=== PATIENT | male | born 1970 | race Caucasian/White ===

== ENCOUNTER 2021-09-23 19:03 | Inpatient (IN) ==
[2021-09-23] MEDS ORDERED: ONDANSETRON INJ 2 MG/ML 2 ML VIAL IV STA (19:20)
[2021-09-23] MEDS ORDERED: SODIUM CHLORIDE 0.9% 1000ML 1,000 ML IV STA (19:20)
[2021-09-23] MEDS ORDERED: MoRPHine SULFATE 4 MG/ML 1 ML CARP\\VIAL IV PRN (19:20)
--- NOTE | 2021-09-23 19:38 | Emergency Department Note ---
Impression & Plan Renal colic on left side, Hydronephrosis, JOHN (acute kidney injury) ED Provider Note NAME: LUIS FERNANDO HOUSTON JR AGE: 50 SEX: M : 1970 ARRIVES VIA: Walk-In INFORMANT: Patient, ED PROVIDER(S): Mauricio Antoine DO CHIEF COMPLAINT: Flank pain HPI: The patient is a 50-year-old male who presented to emergency department for evaluation of left-sided flank pain. The patient states that he was seen in our facility a few days ago. He was seen around midnight. He presented because of severe left-sided flank pain. At that time he was diagnosed with a left-sided kidney stone which was proximal but his pain was significantly improved he was able to be discharged home. He returns tonight because of severe worsening of pain which began on the left flank and goes up his back. He also complains of pain into his left groin. He notices nausea but no vomiting. He has been compliant with his outpatient medications. He states that when he was here the other night was the first time he has had kidney stones. She has never had a procedure to remove or stent for kidney stones. He denies having any chest pain difficulty breathing. He has had no fever. He has noticed some darkening of his urine. Patient states that he was having severe constipation because of the pain medication and took [id number] stool softeners. He was able to have a large bowel movement but states it did not help his flank pain. ROS: See above HPI for pertinent positives & negatives. A total of 10 systems reviewed and were otherwise negative. PAST MEDICAL HISTORY: See Below PAST SURGICAL HISTORY: See Below FAMILY HISTORY: See Below SOCIAL HISTORY: See Below HOME MEDICATIONS: See Below ALLERGIES: See Below VITALS: See Below PHYSICAL EXAMINATION: GENERAL: The patient is awake and alert. The patient is very anxious appearing appears to be uncomfortable. EYES: The conjunctivae are clear. The pupils are round and reactive. EARS, NOSE, MOUTH AND THROAT: The nose is without any evidence of any deformity. NECK: The neck is nontender and supple. RESPIRATORY: Normal respiratory effort is noted there is no evidence of wheezing rhonchi or rales CARDIOVASCULAR: Regular rate and rhythm noted there no murmurs rubs or gallops normal S1 normal S2. GASTROINTESTINAL: The abdomen is soft. Abdomen is nontender. BACK: There is no midline tenderness to palpation. Significant left CVA tenderness was noted to percussion. MUSCULOSKELETAL/EXTREMITIES: There is no evidence of gross deformity full range of motion is noted in the hips and shoulders. SKIN: There is no obvious evidence of any rash. There are no petechiae, pallor or cyanosis noted. NEUROLOGIC: Patient is awake alert and oriented x3 MEDICAL DECISION MAKING: The patient is a 50-year-old male who presented to the emergency department for an evaluation of flank pain. The patient was diagnosed with a proximal left ureteral calculus recently in our facility. He has been taking Motrin and Tylenol as well as oxycodone and continues to worsen. He presented to the emergency department with severe pain. He was treated with IV fluids IV pain medicine and IV antiemetics. Patient was reevaluated multiple times. I did discuss the patient's laboratory and radiographic studies with him. According to his radiographic studies the stone may be moving as the ultrasound shows the stone at the UVJ now. Due to his ongoing pain and his concerns about not being able to manage his pain at home I did discuss his case with the on-call [facility]. They have agreed to evaluate the patient in the emergency department for further management and disposition. Triage Nursing notes reviewed. Prior medical records reviewed Vital Signs: reviewed and remarkable for elevated blood pressure. Differential diagnosis: Renal colic, UTI, appendicitis, diverticulitis, mesenteric ischemia, aortic pathology, infections, inflammatory bowel disease, PUD, biliary pathology, as well as other pathologies. ER treatment provided: See below Diagnostics interpreted by me: ECG: none Cardiac Monitoring: An order was placed for continuous cardiac monitoring. The monitor shows a rate of 80 bpm with sinus rhythm. Laboratory studies: As stated above and show below. Imaging studies: See below Consultation(s): I discussed this case with Dr. Romero who is on-call for the [facility] group. They have agreed to evaluate the patient in the emergency department for further management and disposition. Past Med/Surg History Medical History GERD (gastroesophageal reflux disease) CONTROLLED WITH PRILOSEC Hip bursitis, left Hypertension Lumbar spondylosis Rheumatoid bursitis, left hip Trochanteric bursitis, right hip Surgical History History of abdominoplasty 2017 History of colonoscopy History of esophagogastroduodenoscopy (EGD) History of rotator cuff surgery RIGHT - 14-15 YEARS AGO History of sinus surgery 18 YEARS AGO Social History Smoking Status: Never smoker Second Hand Exposure: Yes; Hx Alcohol Use: Yes Alcohol type: beer Hx Substance Use: No Preferred Language: Nepalese Communication Ability: Effective Filler Room Attendant Required: No Beliefs That Will Affect Care: None Current Living Situation: Spouse and Family Feels Safe at Home: Yes Assistive Devices: None Allergies Allergies Allergy/AdvReac Type Severity Reaction Status Date / Time No Known Allergies Allergy Verified 09/23/21 19:11 Home Meds Home Medications Medication Instructions Recorded Confirmed lisinopril 10 mg tablet 10 mg PO QAM 10/05/19 09/23/21 omeprazole magnesium 20 mg 20 mg PO QAM 10/05/19 09/23/21 tablet,delayed release (Prilosec OTC) atorvastatin 10 mg tablet 10 mg PO DAILY 09/22/21 09/23/21 Previous Rx's Medication Instructions Recorded ondansetron 4 mg disintegrating 4 mg PO Q6H PRN #12 tab 09/22/21 tablet oxycodone 5 mg tablet 5 mg PO Q6H #12 tab 09/22/21 tamsulosin 0.4 mg capsule (Flomax) 0.4 mg PO DAILY #7 cap 09/22/21 Results & Data (ED) Vital Signs Vital Signs - 24 hr 09/23/21 19:06 09/23/21 19:57 09/23/21 21:03 Temperature 36.7 C Temperature Source Temporal Artery Scan Pulse Rate 100 H 86 Pulse Rate [Left Radial] 86 88 Respiratory Rate 18 20 20 Respiratory Effort / Characteristics Non-Labored Non-Labored Respiratory Depth Normal Normal Normal Blood Pressure 139/91 Blood Pressure [Right Arm] 144/88 H 153/92 H Blood Pressure Mean 107 Blood Pressure Mean [Right Arm] 106 112 Pulse Oximetry 100 93 94 Oxygen Delivery Method Room Air Room Air Room Air Sepsis Recent Fever Within 48 Hours No Sepsis New/Unexplained Change in Mental Status N/A Sepsis Action Taken by Nursing No Action Required 09/23/21 21:53 Temperature Temperature Source Pulse Rate Pulse Rate [Left Radial] 90 Respiratory Rate 20 Respiratory Effort / Characteristics Non-Labored Respiratory Depth Normal Blood Pressure Blood Pressure [Right Arm] 153/95 H Blood Pressure Mean Blood Pressure Mean [Right Arm] 114 Pulse Oximetry 94 Oxygen Delivery Method Room Air Sepsis Recent Fever Within 48 Hours Sepsis New/Unexplained Change in Mental Status Sepsis Action Taken by Longterm Medications Current Medication List: was personally reviewed by me Laboratory Data Attestation: I reviewed the patient's lab results. Result diagrams: 09/23/21 19:30 09/23/21 19:30 Lab Results 09/23/21 09/23/21 09/23/21 Range/Units 19:30 19:30 20:16 WBC 11.13 H (4.8-10.8) K/uL RBC 4.72 (4.7-6.1) M/uL Hgb 14.2 (14.0-18.0) g/dL Hct 40.5 L (42-52) % MCV 85.8 (80-100) fL MCH 30.1 (25-34) pg MCHC 35.1 (32-36) g/dL RDW Std Deviation 44.4 (36.4-46.3) fL RDW Coeff of Jazmine 14.1 (11.5-14.5) % Plt Count 238 (130-400) K/uL MPV 10.4 (7.4-10.4) fL Immature Gran % (Auto) 0.3 % Neut % (Auto) 76.7 % Lymph % (Auto) 10.1 % [place] % (Auto) 11.8 % Eos % (Auto) 1.0 % Baso % (Auto) 0.1 % Neut # (Auto) 8.55 H (1.4-6.5) K/uL Lymph # (Auto) 1.12 L (1.2-3.4) K/uL [place] # (Auto) 1.31 H (0.11-0.59) K/uL Eos # (Auto) 0.11 (0-0.5) K/uL Baso # (Auto) 0.01 (0-0.2) K/uL Immature Gran # (Auto) 0.03 H (0.00-0.02) K/uL Sodium 136 (136-145) mmol/L Potassium 4.2 (3.5-5.1) mmol/L Chloride 102 (98-107) mmol/L Carbon Dioxide 25 (21-32) mmol/L Anion Gap 9 (3-11) BUN 27 H (6-23) mg/dl Creatinine 1.98 H D (0.6-1.4) mg/dl Est Cr Clr Drug Dosing 55.4 ml/min Est GFR ( Amer) 43.7 ml/min Est GFR (Non-Af Amer) 37.7 ml/min BUN/Creatinine Ratio 13.6 (10-20) Glucose 104 H (70-99(Fasting)) mg/dl Calcium 8.9 (8.5-10.1) mg/dl Total Bilirubin 0.5 (0.2-1.0) mg/dl AST 21 (13-39) U/L ALT 23 (7-52) U/L Alkaline Phosphatase 63 (34-104) U/L Total Protein 7.0 (6.0-8.3) gm/dl Albumin 4.3 (3.4-5.0) gm/dl Globulin 2.7 (2.5-4.0) gm/dl Albumin/Globulin Ratio 1.6 (0.9-2) Lipase 21 (11-82) U/L Urine Color Yellow Urine Appearance Clear (Clear) Urine pH 5.5 (4.5-7.5) Ur Specific [place] 1.020 (1.000-1.030) Urine Protein Negative (Negative) Urine Glucose (UA) Negative (Negative) Urine Ketones 1+ H (Negative) Urine Blood Trace H (Negative) Urine Nitrite Negative (Negative) Urine Bilirubin Negative (Negative) Urine Urobilinogen Negative (Negative) Ur Leukocyte Esterase Negative (Negative) Urine WBC (Auto) 1-5 (0-5) /hpf Urine RBC (Auto) 0-4 (0-4) /hpf U Hyaline Cast (Auto) 1-5 (0-5) /lpf U Epithel Cells (Auto) 5-10 H (0-5) /lpf Urine Bacteria (Auto) Negative (Negative) Administered Medications Hydromorphone HCl (Hydromorphone Inj 0.5 Mg/0.5 Ml Syr) 0.5 mg IV Q15M PRN PRN Reason: Pain Stop: 10/07/21 19:33 Last Admin: 09/23/21 20:35 Dose: 0.5 mg Documented by: [id number] Admin: 09/23/21 19:41 Dose: 0.5 mg Documented by: [id number] Discontinued Medications Sodium Chloride (Nss 1000ml) 1,000 mls @ 999 mls/hr IV .Q1H1M STA Stop: 09/23/21 20:20 Last Infusion: 09/23/21 20:21 Dose: 0 mls/hr Documented by: [id number] Admin: 09/23/21 19:40 Dose: 999 mls/hr Documented by: [id number] Ketorolac Tromethamine (Ketorolac Tromethamine 15 Mg/Ml Vial) 10 mg IV NOW ONE Stop: 09/23/21 21:39 Last Admin: 09/23/21 21:43 Dose: 10 mg Documented by: [id number] Ondansetron HCl (Ondansetron Inj 2 Mg/Ml 2 Ml Vial) 4 mg IV NOW STA Stop: 09/23/21 19:21 Last Admin: 09/23/21 19:41 Dose: 4 mg Documented by: [id number] Imaging Data Attestation: I personally reviewed and interpreted this imaging study as follows: My Impression: KUB was obtained in the emergency department. My interpretation is no free air, no obstruction, no acute disease. I was not able to identify any specific calcification that would be consistent with the patient's reported history of a left-sided ureteral calculus. Radiologist's Impression: Patient: LUIS FERNANDO HOUSTON JR (Male) : 66 Status: ER Date: 09/23/21 21:11 Room #: History: left flank pain Slices: 32 Priors: Tech: Miguel Calabrese @ [phone] Exams: US RENAL Contrast: Accession Numbers: [id number] Referring Physician: REFERRED SELF Preliminary Findings Only See Final Report For Complete Findings US RENAL: Mild left pelvocaliectasis. Kidney stone measuring at least 6 mm in diameter at the left ureterovesicular junction. Unremarkable appearance of the right kidney. Layering stones/debris in the bladder. Mild thickening of the bladder wall. Hepatic steatosis. Comparison made with 09/22/2021 CT abdomen/pelvis. Radiologist: Will Junior MD Study ready at 21:13 and initial results transmitted at 21:28 Discharge Plan Visit Data Chief Complaint: Kidney Stone Stated Complaint: KIDNEY STONE, PAIN MEDS NOT HELPING ED Provider: Mauricio Antoine Discharge Problem: Renal colic on left side, Hydronephrosis, JOHN (acute kidney injury) Patient Disposition: Being Evaluated by Hospitalist Forms Stand Alone Forms: [facility] Prescriptions Prescriptions: No Action lisinopril 10 mg Tablet 10 mg PO QAM RF: 0 omeprazole magnesium [Prilosec OTC] 20 mg Tablet,Delayed Release (Dr/Ec) 20 mg PO QAM RF: 0 atorvastatin 10 mg Tablet 10 mg PO DAILY RF: 0 tamsulosin [Flomax] 0.4 mg capsule 0.4 mg PO DAILY Qty: 7 RF: 0 ondansetron 4 mg tablet,disintegrating 4 mg PO Q6H PRN (Reason: nausea and vomiting) Qty: 12 RF: 0 oxycodone 5 mg tablet 5 mg PO Q6H Qty: 12 RF: 0 Referrals Referrals: Marcos Painter MD [Primary Care Provider] -
[2021-09-23 19:41] LABS: Basophils # (auto) 0.01 K/uL (0-0.2); Basophils % (auto) 0.1 %; Eosinophils # (auto) 0.11 K/uL (0-0.5); Hematocrit (blood only) 40.5 % (42-52); Hemoglobin 14.2 g/dL (14.0-18.0); Immature Granulocytes # (auto) 0.03 K/uL (0.00-0.02); Immature Granulocytes % (auto) 0.3 %; Lymphocytes # (auto) 1.12 K/uL (1.2-3.4); Lymphocytes % (auto) 10.1 %; Mean Corpuscular Hemoglobin 30.1 pg (25-34); Mean Corpuscular Hgb Conc 35.1 g/dL (32-36); Mean Corpuscular Volume 85.8 fL (80-100); Mean Platelet Volume 10.4 fL (7.4-10.4); Monocytes # (auto) 1.31 K/uL (0.11-0.59); Monocytes % (auto) 11.8 %; Neutrophils # (auto) 8.55 K/uL (1.4-6.5); Neutrophils % (auto) 76.7 %; Platelet Count 238 K/uL (130-400); RDW Coefficient of Variation 14.1 % (11.5-14.5); RDW Standard Deviation 44.4 fL (36.4-46.3); Red Blood Count 4.72 M/uL (4.7-6.1); White Blood Count 11.13 K/uL (4.8-10.8)
[2021-09-23] MEDS: HYDROmorphone INJ 0.5 MG/0.5 ML SYR IV PRN ×2 (19:41→20:35)
[2021-09-23 20:28] LABS: Appearance Urine Clear (Clear); Bacteria Urine Automated Negative (Negative); Bilirubin Urine Negative (Negative); Blood Urine Trace (Negative); Color Urine Yellow; Glucose Urine UA Negative (Negative); Ketones Urine 1+ (Negative); Leukocyte Esterase Urine Negative (Negative); Nitrite Urine Negative (Negative); Protein Urine Negative (Negative); RBC Urine Automated 0-4 /hpf (0-4); Urobilinogen Urine Negative (Negative); pH Urine 5.5 (4.5-7.5)
[2021-09-23 20:44] LABS: Albumin Globulin Ratio 1.6 (0.9-2); Albumin Level 4.3 gm/dl (3.4-5.0); BUN Creatinine Ratio 13.6 (10-20); Bilirubin,Total 0.5 mg/dl (0.2-1.0); Calcium 8.9 mg/dl (8.5-10.1); Creatinine Clr Calc Pharmacy 55.4 ml/min; Est GFR (African American) 43.7 ml/min; Est GFR (Non-African American) 37.7 ml/min; Globulin 2.7 gm/dl (2.5-4.0); Potassium 4.2 mmol/L (3.5-5.1)
[2021-09-23] MEDS ORDERED: KETOROLAC TROMETHAMINE 15 MG/ML VIAL IV ONE (21:38)
[2021-09-23] MEDS ORDERED: SODIUM CHLORIDE 0.9% 1000ML 1,000 ML IV ONE (22:01)
[2021-09-23] MEDS ORDERED: POLYETHYLENE (MIRALAX) 17 GM PACK PO PRN (23:23)
[2021-09-23] MEDS ORDERED: ACETAMINOPHEN 325 MG TAB PO PRN (23:23)
[2021-09-23] MEDS ORDERED: ONDANSETRON INJ 2 MG/ML 2 ML VIAL IV PRN (23:23)
[2021-09-23] MEDS ORDERED: hydrALAZINE HCL 20 MG/ML VIAL IV PRN (23:23)
[2021-09-23] MEDS ORDERED: HYDROmorphone INJ 0.5 MG/0.5 ML SYR IV PRN (23:23)
[2021-09-23] MEDS: SODIUM CHLORIDE 0.9% 1000ML 1,000 ML IV SCH (23:39)
--- NOTE | 2021-09-24 02:24 | History and Physical Report ---
DATE OF ADMISSION: 09/23/2021. CHIEF COMPLAINT: Left renal colic. HISTORY OF PRESENT ILLNESS: This 50-year-old male with past medical history significant for hypertension, external hemorrhoids, Shine's esophagus, GERD, allergic conjunctivitis, mixed rhinitis, obesity, history of colon polyps, presents with left renal colic. The patient is having pain since last . He was in the ER yesterday and imaging studies CAT scan showed mild left hydronephrosis and hydroureter secondary to 6 mm obstructing stone in the proximal left ureter. After Toradol, the patient did fine and he was sent home on oxycodone, Flomax. The patient was taking a lot of pain medication today at home. Pain was getting worse, so he came here, and ultrasound was done in the ER, which showed the stone moved into left UVJ junction, 6 mm stone. Getting admitted because of ongoing pain and also his creatinine worsened from 1.2 to 1.9 today. The patient denies any blood in the urine or frequent micturition, no blood in the stools. No fever, no chills, no nausea, no vomiting. Currently, pain is about 5-6/10 in severity. Denies any chest pain, no shortness of breath, no headache, no blurred visions, no earache, no runny nose, no sore throat, no cough. Otherwise, ambulates okay. ALLERGIES: No known drug allergies. PAST MEDICAL HISTORY: As mentioned above. PAST SURGICAL HISTORY: Colonoscopy with biopsy, EGDs, nasal surgery, reinsert ruptured biceps tendon on the right side, right side repair of shoulder cuff avulsion, suction of fat tissue at flank. MEDICATIONS: The patient is on atorvastatin 10 mg p.o. daily, lisinopril 10 mg p.o. a.m., omeprazole 20 mg p.o. a.m., Zofran 4 mg p.o. q.6 p.r.n., oxycodone 5 mg p.o. q.6 hours p.r.n., Flomax 0.4 mg p.o. daily. FAMILY HISTORY: Significant for mother has allergies and diabetes; sister has allergies. SOCIAL HISTORY: . Some day smoker. Alcohol 8-12 drinks per week. No drug use. REVIEW OF SYSTEMS: As per HPI. Rest of review of systems is negative. PHYSICAL EXAMINATION: GENERAL: The patient is of moderate built, not in acute distress. VITAL SIGNS: Temperature 36.7, pulse 90, respiratory rate 20, blood pressure 153/95, oxygen 94% on room air. HEENT: Pupils equal, round and reactive to light. Oral mucosa moist. NECK: No JVD. No neck masses. CARDIOVASCULAR: S1 and S2 heard. Regular rate and rhythm. No murmur, no gallop. RESPIRATORY SYSTEM: Normal AP diameter. No accessory muscle use. No wheezing, no crackles. ABDOMEN: Soft, bowel sounds present. Mild left lower quadrant tenderness. No CVA tenderness. No guarding. No rigidity. CENTRAL NERVOUS SYSTEM: Cranial nerves II-XII grossly intact, nonfocal. EXTREMITIES: No edema, no erythema. LABORATORY DATA: WBC 11.13, hemoglobin 14.2, hematocrit 40.5, platelets 238. Sodium 136, potassium 4.2, chloride 102, bicarbonate 25, BUN 27, creatinine 1.98, serum glucose 104, calcium 8.9, total bilirubin 0.5, AST 21, ALT 23, alkaline phosphatase 63, lipase 21. Urinalysis, +1 ketones, trace blood. SARS-CoV-2 RNA rapid test negative. Renal ultrasound, preliminary report shows a 6 mm left uvj junction stone. ASSESSMENT AND PLAN: A 50-year-old male who presents with left renal colic. 1. Left renal colic: Pain last couple of days has pain, and yesterday in the Emergency Room, CAT scan showing left proximal ureteral kidney stone, 6 mm. He was sent home, comes back with ongoing pain and the stone has moved to left ureterovesical junction. Urinalysis shows no obvious infection. With his ongoing pain not getting better, we will keep the patient in the hospital. IV fluids, IV antiemetics, IV pain medication p.r.n. N.p.o. after midnight. Urology consult in a.m. Follow the repeat laboratories in the a.m. Continue Flomax. Further imaging studies as per urology. 2. Acute kidney injury: Presents with creatinine of 1.9. We will hold his lisinopril. Avoid nonsteroidal anti-inflammatory drugs and avoid nephrotoxic agents. Follow the repeat laboratories in the a.m. 3. Hyperlipidemia: Continue statin. 4. Hypertension: Holding lisinopril and place him on IV hydralazine p.r.n. 5. Gastroesophageal reflux disease and Shine's esophagus: Continue omeprazole. 6. Deep venous thrombosis prophylaxis: Sequential compression devices for now. DISPOSITION: Closely monitor in the medical floor. PT/OT prior to discharge. Social service to help with discharge planning. Job ID: [id number] [facility]
[2021-09-24] MEDS ORDERED: HYDROmorphone INJ 1 MG/ML SYRINGE IV PRN (05:53)
[2021-09-24] MEDS ORDERED: CIPROFLOXACIN / D5W 400 MG/200 ML BAG IV SCH (06:00)
[2021-09-24] MEDS: SODIUM CHLORIDE 0.9% 1000ML 1,000 ML IV SCH ×2 (06:45→16:12)
--- NOTE | 2021-09-24 07:21 | Ultrasound Report ---
ULTRASOUND KIDNEYS AND BLADDER CLINICAL HISTORY: Flank pain. Known left ureteral stone. COMPARISON STUDY: Abdominal CT dated 09/22/2021. TECHNIQUE: Real-time, grayscale, and color flow sonography of the kidneys and bladder is performed. I mages are reviewed in the transverse and longitudinal planes. FINDINGS: Kidneys: The kidneys are normal in size and echotexture. The right kidney measures 12.5 cm in length and the left kidney measures 14.0 cm in length. There is mild left-sided hydronephrosis. The left ure ter is not well-visualized. No shadowing renal calculi are identified in either kidney. There is no s onographic evidence of contour deforming renal mass lesion. No perinephric fluid is identified. Bladder: The bladder wall appears thickened and trabeculated suggesting chronic outlet obstruction. U reteral jets were not seen. A shadowing stone is seen in the region of the vesicoureteral junction. Upper abdomen: Survey images of the liver show evidence of steatosis. IMPRESSION: 1. Kidneys normal in size and there is mild left hydronephrosis. 2. A large calculus is seen in the region of the vesicoureteral junction. This could represent distal migration of the known left ureteral stone or a stone seen within a left-sided bladder diverticulum on yesterday's CT scan. 3. Ureteral jets were not seen. 4. Hepatic steatosis. ACT 112: Negative or not required by law. Electronically signed by: Mitul Remy M.D. 09/24/2021 7:19 AM
--- NOTE | 2021-09-24 07:24 | XRay Report ---
KUB Clinical history: Left flank pain. FINDINGS: 2 AP supine abdominal radiographs are correlated with abdominal CT dated 09/22/2021. There i s a nonobstructed abdominal bowel gas pattern. No calcifications are seen projecting over either kidn ey. A 9 mm calcification in the left hemipelvis likely represents the large stone within a bladder di verticulum seen on yesterday's CT scan. There may be an additional 6 mm calcification projecting over the distal left ureter below the pelvic inlet. The bony structures appear intact. IMPRESSION: Left pelvic calcifications as above, likely representing stones within the distal ureter and a left-sided bladder diverticulum. Electronically signed by: Mitul Remy M.D. 09/24/2021 7:23 AM
[2021-09-24] MEDS: TAMSULOSIN HCL 0.4 MG CAP PO SCH (09:03)
[2021-09-24] MEDS: ATORVASTATIN 10 MG TAB PO SCH (09:03)
[2021-09-24] MEDS: HYDROmorphone INJ 1 MG/ML SYRINGE IV PRN ×3 (09:03→21:48)
[2021-09-24] MEDS: PANTOprazole 40 MG TAB PO SCH (09:03)
--- NOTE | 2021-09-24 09:06 | Urology Consultation ---
Date of Consultation September 24, 2021 Assessment & Plan (1) Calculus, ureteral: (2) Bladder calculi: 2 obstructing left ureteral calculi as well as stones within the bladder Plan for cystoscopy and left ureteral stent placement today I will try to evacuate the bladder stones if possible He I have explained that he will require a second procedure down the road to definitively treat these 2 stones Risks, benefits, expectations reviewed Consent has been signed and is on the chart Remain n.p.o. in preparation for the operating room History of Present Illness Attending Physician: Maykel Fuller MD History of Present Illness 50-year-old male with significant left flank pain for the past 24 to 48 hours He denies any known history of kidney stones, however, he has been passing small amounts of sand/debris in his urine for the past several years Never any large stones and never any flank pain with it He currently has a low level [id number] He has an elevated creatinine of 1.9 He continues to have intermittent waves of left flank pain with associated nausea He is afebrile He is not tachycardic His CT was reviewed and discussedhe has a left proximal ureteral calculus as well as a large left distal ureteral calculus and significant stone debris within the dependent portion of the bladder Allergies Allergy/AdvReac Type Severity Reaction Status Date / Time No Known Allergies Allergy Verified 09/23/21 19:11 Home Medications Medication Instructions Recorded Confirmed Type lisinopril 10 mg tablet 10 mg PO QAM 10/05/19 09/23/21 History omeprazole magnesium 20 mg 20 mg PO QAM 10/05/19 09/23/21 History tablet,delayed release (Prilosec OTC) atorvastatin 10 mg tablet 10 mg PO DAILY 09/22/21 09/23/21 History ondansetron 4 mg disintegrating 4 mg PO Q6H PRN #12 tab 09/22/21 09/23/21 Rx tablet oxycodone 5 mg tablet 5 mg PO Q6H #12 tab 09/22/21 09/23/21 Rx tamsulosin 0.4 mg capsule (Flomax) 0.4 mg PO DAILY #7 cap 09/22/21 09/23/21 Rx Patient History Medical History GERD (gastroesophageal reflux disease) CONTROLLED WITH PRILOSEC Hip bursitis, left Hypertension Lumbar spondylosis Rheumatoid bursitis, left hip Trochanteric bursitis, right hip Surgical History History of abdominoplasty 2017 History of colonoscopy History of esophagogastroduodenoscopy (EGD) History of rotator cuff surgery RIGHT - 14-15 YEARS AGO History of sinus surgery 18 YEARS AGO Social History Smoking Status: Current some day smoker Cigarettes Per Day: 2 cigars per month; Second Hand Exposure: Yes; Tobacco Cessation Education Requested by Patient: No Hx Alcohol Use: Yes Alcohol type: beer Hx Substance Use: No Preferred Language: [place] Communication Ability: Effective Take Away Worker Required: No Beliefs That Will Affect Care: None Current Living Situation: Spouse Feels Safe at Home: Yes Safety Concerns: Feels Safe At This Time Assistive Devices: Glasses Review of Systems Constitutional: no fever, no chills and no fatigue Eyes: no worsening vision Ear, Nose, Mouth, Throat: no facial pain and no pain with swallowing Respiratory: no cough and no dyspnea Cardiovascular: no chest pain and no palpitations Gastrointestinal: + abdominal pain and + nausea Genitourinary: + urinary hesitancy and + flank pain Musculoskeletal: no back pain Integumentary: no rash and no urticaria Neurologic: no gait abnormality and no unsteadiness Psychiatric: no behavioral changes and no depression Endocrine: no fatigue Physical Exam Constitutional: well developed and well nourished Neck: neck nontender Respiratory: normal respiratory effort; no respiratory distress and does not use accessory muscles Cardiovascular: Rate/Rhythm: regular rate Vessels: radial pulses present Extremities: no edema Gastrointestinal (Abdomen): Inspection/Auscultation: abdomen normal to inspection Percussion/Palpation: abdomen soft; abdomen nontender and no guarding Musculoskeletal: Head/Neck/Chest: normocephalic and head atraumatic Extremities: extremities normal to inspection Skin: no rashes and no lesions Trauma: no evidence of skin trauma Neurologic: awake; not obtunded Speech / Cognition: normal speech Motor/Sensory: no tremor Psychiatric: Orientation: alert and oriented x 3 Genitourinary: no CVA tenderness Lymphatic: no lymphadenopathy Results & Data ([facility]) Vital Signs (Past 12 Hours) Vital Signs Temp Pulse Pulse Pulse Resp BP BP 09/24/21 08:02 36.8 C 82 16 157/97 H 09/24/21 00:32 137/84 09/23/21 23:15 36.7 C 85 18 171/105 H 09/23/21 23:08 87 20 142/85 H 09/23/21 23:02 87 20 142/85 H 09/23/21 21:53 90 20 153/95 H Pulse Ox 09/24/21 08:02 93 09/24/21 00:32 09/23/21 23:15 95 09/23/21 23:08 95 09/23/21 23:02 95 09/23/21 21:53 94 PG Care Time/CCT Total # of Minutes Spent Total Time Spent with Patient: Total time spent is greater than 50% in coordination of care (as documented) at patient's floor/unit and/or counseling patient: Coding Level of Care Code 55776 Inpt Consult Level 5 Diagnoses Calculus, ureteral N20.1 Bladder calculi N21.0
[2021-09-24] MEDS ORDERED: SODIUM CHLORIDE 0.65% NA SOLN 45 ML (OCEAN) ONE (11:48)
[2021-09-24] MEDS ORDERED: ONDANSETRON INJ 2 MG/ML 2 ML VIAL ONE (12:00)
[2021-09-24] MEDS ORDERED: PROPOFOL IV EMULSION 10 MG/ML 20 ML VIAL IV ONE ×2 (12:01→14:48)
[2021-09-24] MEDS ORDERED: fentaNYL citrate 100 MCG/2 ML VIAL ONE (12:01)
[2021-09-24] MEDS ORDERED: MIDAZOLAM HCL 1 MG/ML 2ML VIAL ONE (12:01)
--- NOTE | 2021-09-24 13:41 | Anesthesiology Consultation ---
Date of Service September 24, 2021 Assessment & Plan ASA ASA2 Proposed Anesthesia Anesthesia Type: MAC Risk / Benefits Reviewed With: PT / POA / Parent / Guardian, Accepts Plan and Informed Consent Obtained History Surgery Operation Date: 09/24/21 09:05 Proposed Procedures p Cystoscopy - Nima Stallings MD s Ureteral Stent Insertion/Removal(Left) - Nima Stallings MD Height/Weight Height: 5 ft 11 in Weight: 113.5 kg Allergies Allergy/AdvReac Type Severity Reaction Status Date / Time No Known Allergies Allergy Verified 09/23/21 19:11 Medications Home Medications Medication Instructions Recorded Confirmed Last Taken lisinopril 10 mg tablet 10 mg PO QAM 10/05/19 09/23/21 09/21/21 omeprazole magnesium 20 mg 20 mg PO QAM 10/05/19 09/23/21 09/21/21 tablet,delayed release (Prilosec OTC) atorvastatin 10 mg tablet 10 mg PO DAILY 09/22/21 09/23/21 09/21/21 ondansetron 4 mg disintegrating 4 mg PO Q6H PRN #12 tab 09/22/21 09/23/21 Unknown tablet oxycodone 5 mg tablet 5 mg PO Q6H #12 tab 09/22/21 09/23/21 Unknown tamsulosin 0.4 mg capsule (Flomax) 0.4 mg PO DAILY #7 cap 09/22/21 09/23/21 Unknown Active Medications Generic Name Dose Route Start Last Admin Trade Name Freq PRN Reason Stop Dose Admin Atorvastatin Calcium 10 mg 09/24/21 09:00 09/24/21 09:03 Atorvastatin 10 Mg Tab PO 10/24/21 08:59 10 mg DAILY ZACH Administration Hydromorphone HCl 1 mg 09/24/21 08:09 09/24/21 11:23 Hydromorphone Inj 1 Mg/Ml Syringe IV 10/08/21 05:52 1 mg Q2H PRN Administration Pain Sodium Chloride 1,000 mls @ 125 mls/hr 09/23/21 23:23 09/24/21 06:45 Nss 1000ml IV 10/23/21 23:22 125 mls/hr .Q8H ZACH Administration Pantoprazole Sodium 40 mg 09/24/21 09:00 09/24/21 09:03 Pantoprazole 40 Mg Tab PO 10/24/21 08:59 40 mg QAM ZACH Administration Tamsulosin HCl 0.4 mg 09/24/21 09:00 09/24/21 09:03 Tamsulosin Hcl 0.4 Mg Cap PO 10/24/21 08:59 0.4 mg DAILY ZACH Administration NPO Date Last Intake of Fluids: 09/24/21 Time Last Intake of Fluids: 00:00 Date Last Intake of Solids: 09/24/21 Time Last Intake of Solids: 00:00 Past Medical History Medical History GERD (gastroesophageal reflux disease) CONTROLLED WITH PRILOSEC Hip bursitis, left Hypertension Lumbar spondylosis Rheumatoid bursitis, left hip Trochanteric bursitis, right hip Exercise / Class Metabolic Activity II 4-5 Yardwork/Stairs/Walk up hill Past Surgical History Surgical History History of abdominoplasty 2017 History of colonoscopy History of esophagogastroduodenoscopy (EGD) History of rotator cuff surgery RIGHT - 14-15 YEARS AGO History of sinus surgery 18 YEARS AGO Past Anesthesia History No Hx of Anesthesia Complications and No Family Hx of Anesthesia Complications History of PONV No Hx of PONV and No Hx of Motion Sickness Social History Smoking Status: Current some day smoker tobacco type: cigars Smoking cigarettes per day: 2 cigars per month Hx Alcohol Use: Yes Alcohol type: beer alcohol intake frequency: a few times a week Hx Substance Use: No Review of Systems denies fever/cough/ colds/ chest pain/ SOB/ KARLIE denies KARLIE Physical Exam Vital Signs Last Vital Signs Temp 36.8 C 09/24/21 08:02 Pulse 82 09/24/21 08:02 Resp 16 09/24/21 08:02 BP 157/97 H 09/24/21 08:02 Pulse Ox 93 09/24/21 08:02 ENMT Mouth: no TMJ abnormality and no dentition abnormality Thyromental Distance: > or= 3.5 Finger Breadths Mallampati Class: II Neck neck extension not limited Respiratory normal respiratory effort; no respiratory distress Auscultation: lungs clear to auscultation bilaterally Cardiovascular Rate/Rhythm: regular rate and regular rhythm Neurologic moves all extremities Psychiatric Orientation: alert and oriented x 3 Testing Laboratory Results 09/23/21 19:30 09/23/21 19:30 Urine Color Yellow 09/23/21 20:16 Urine Appearance Clear (Clear) 09/23/21 20:16 Urine pH 5.5 (4.5-7.5) 09/23/21 20:16 Ur Specific [place] 1.020 (1.000-1.030) 09/23/21 20:16 Urine Protein Negative (Negative) 09/23/21 20:16 Urine Glucose (UA) Negative (Negative) 09/23/21 20:16 Urine Ketones 1+ (Negative) H 09/23/21 20:16 Urine Nitrite Negative (Negative) 09/23/21 20:16 Ur Leukocyte Esterase Negative (Negative) 09/23/21 20:16 Urine WBC (Auto) 1-5 /hpf (0-5) 09/23/21 20:16 Urine RBC (Auto) 0-4 /hpf (0-4) 09/23/21 20:16 U Hyaline Cast (Auto) 1-5 /lpf (0-5) 09/23/21 20:16 U Epithel Cells (Auto) 5-10 /lpf (0-5) H 09/23/21 20:16 Urine Bacteria (Auto) Negative (Negative) 09/23/21 20:16
[2021-09-24] MEDS ORDERED: fentaNYL citrate 100 MCG/2 ML VIAL IV PRN (14:22)
[2021-09-24] MEDS ORDERED: ePHEDrine sulfate 50 MG/ML AMP IV PRN (14:22)
[2021-09-24] MEDS ORDERED: HYDROmorphone INJ 2 MG/ML SYR/VIAL IV PRN (14:22)
[2021-09-24] MEDS ORDERED: ATROPINE SULFATE 0.1 MG/ML 10ML SYR IV PRN (14:22)
[2021-09-24] MEDS ORDERED: ONDANSETRON INJ 2 MG/ML 2 ML VIAL IV PRN (14:22)
--- NOTE | 2021-09-24 15:15 | Operative Report ---
PG Post Operative Report Pre & Post Diagnosis Operation Date: 09/24/21 09:05 Pre-Op Diagnosis: left ureteral stone Post-Op Diagnosis: left ureteral stone; bladder diverticulum with stone; bladder calculi I identified the patient and participated in the time-out.: Yes Procedure Operation Date: 09/24/21 09:05 Actual Procedures p Cystoscopy - Nima Stallings MD cystolithalopaxy and stone extraction s Ureteral Stent Insertion(Left) - Nima Stallings MD Surgeon Luke Stallings MD Lecturer Of Portuguese none Estimated Blood Loss 0 Findings Consistent with Post-Op Diagnosis as per dictation Specimens Bladder calculi Description of Procedure The patient was identified in the preoperative holding area, appropriate informed consents were reviewed and completed and the patient was transferred to the operative suite. Upon arrival, appropriate antibiotics and anesthesia were administered and the patient was placed in dorsal lithotomy position and prepped and draped in sterile fashion. To begin the case I passed a 22 Bengali cystoscope with 30 degree lens and visual obturator. Inspection revealed a healthy-appearing urethra and a moderately enlarged prostate with a relatively high bladder neck. Upon entry into the bladder I immediately encountered a small pile of small stones. I was able to irrigate the stones out of the bladder. These were collected and passed off the table. I then started to evaluate the bladder more fully. I identified the ureteral orifices in orthotopic position and immediately posterior to the left ureteral orifice was a diverticulum with a large calculus seen within. Of note, on his preoperative imaging this calcification was visible and appeared to be very close to the distal ureter and I somewhat expected to be within the distal ureter. This clearly was not in the ureter and is immediately adjacent to it. I then turned my attention to the left UO and passed a sensor wire which advanced to the kidney without difficulty. I stented that kidney without difficulty seeing a good curl in the kidney as well as the bladder. This should address the left proximal ureteral calculus. I then turned my attention back to the stone within the diverticulum. Using a basket I was able to extract it from the diverticulum. I was able to then break in the several pieces which I could subsequently pull out of the bladder. These were also collected and passed off the table. I flushed out the diverticulum and confirmed that there were no other large stones within. At the conclusion of the case the bladder was emptied all structures were healthy. The stent was left in place and the case concluded. There were no complications. I attest to the content of the Intraoperative Record and any orders documented therein. Any exceptions are noted below.
--- NOTE | 2021-09-24 15:29 | Anesthesiology Progress Note ---
Date of Service September 24, 2021 Anesthesia Post Procedure Vital Signs Vital Signs: Temp Pulse Pulse Pulse Resp BP BP 09/24/21 08:02 36.8 C 82 16 157/97 H 09/24/21 00:32 137/84 09/23/21 23:15 36.7 C 85 18 171/105 H 09/23/21 23:08 87 20 142/85 H 09/23/21 23:02 87 20 142/85 H 09/23/21 21:53 90 20 153/95 H 09/23/21 21:03 88 20 153/92 H 09/23/21 19:57 86 86 20 144/88 H 09/23/21 19:06 36.7 C 100 H 18 139/91 Pulse Ox 09/24/21 08:02 93 09/24/21 00:32 09/23/21 23:15 95 09/23/21 23:08 95 09/23/21 23:02 95 09/23/21 21:53 94 09/23/21 21:03 94 09/23/21 19:57 93 09/23/21 19:06 100 Pain Intensity Left Flank: Pain Intensity: 2 Transfer of Care Handoff Completed per policy Notes Mental Status: alert / awake / arousable and participated in evaluation Patient Amnestic to Procedure: Yes Nausea / Vomiting: adequately controlled Pain: adequately controlled Airway Patency, RR, SpO2: stable & adequate BP & HR: stable & adequate Hydration State: stable & adequate Anesthetic Complications: no major complications apparent and Pt Satisfied with anesthetic care
--- NOTE | 2021-09-24 16:00 | Hospitalist Progress Note ---
Date of Service September 24, 2021 Assessment & Plan (1) Calculus, ureteral: (2) JOHN (acute kidney injury): Plan: 50 year old male presented to the ED with left flank pain due to left ureteral calculus. Left ureteral calculus/bladder calculi- CT reviewed. Renal US reviewed. Large calculus in VUJ. Seen by Uro. S/p OR with cystolithalopaxy and stone extraction, left ureteral stent insertion today 09/24. Pain management. UA doesn't suggest UTI JOHN- Cr 1.98 09/24, 1.29 on 09/22. JOHN In setting of NSAIDs use, calculi and lisinopril. IVF, avoid NSAIDs, hold lisinopril. Recheck in am HTN- holding lisinopril in setting of JOHN. HLZ prn GERD and barett's esophagus- continue PPI Admission and Anticipated Discharge Date Admission Date: September 23, 2021 Subjective IV dilaudid helps for 1-1.5 hrs and asking for pain medicine frequency to be increased. No fever, chills, nausea, vomiting. Urine clear without hematuria. Looking forward to OR. Physical Exam Physical Exam: General: Lying comfortably in bed, not in distress, on room air HEENT: EOMI, THU, MMM Chest: Clear breath sounds bilaterally, no wheezes or crackles CVS: Regular rate and rhythm, normal heart sounds, no murmur Abdomen: Soft, non tender, not distended, normal bowel sounds. No CVA or suprapubic tenderness. Neuro: Awake, alert, oriented, conversing well, non focal Extremities: No cyanosis, clubbing or edema Results & Data Results & Data ([facility]) Vital Signs (Past 12 Hours) Vital Signs Temp Pulse Pulse Resp BP Pulse Ox 09/24/21 15:30 36.5 C 83 18 146/87 H 94 09/24/21 15:20 81 16 129/85 95 09/24/21 15:13 36.4 C L 93 H 15 116/84 96 09/24/21 08:02 36.8 C 82 16 157/97 H 93 Laboratory Results Short CBC 09/23/21 Range/Units 19:30 WBC 11.13 H (4.8-10.8) K/uL Hgb 14.2 (14.0-18.0) g/dL Hct 40.5 L (42-52) % Plt Count 238 (130-400) K/uL BMP 09/23/21 19:30 Sodium 136 Potassium 4.2 Chloride 102 Carbon Dioxide 25 BUN 27 H Creatinine 1.98 H D Glucose 104 H Calcium 8.9 Liver Function 09/23/21 Range/Units 19:30 Total Bilirubin 0.5 (0.2-1.0) mg/dl AST 21 (13-39) U/L ALT 23 (7-52) U/L Alkaline Phosphatase 63 (34-104) U/L Albumin 4.3 (3.4-5.0) gm/dl Urine 09/23/21 Range/Units 20:16 Urine Color Yellow Urine Appearance Clear (Clear) Urine pH 5.5 (4.5-7.5) Ur Specific [place] 1.020 (1.000-1.030) Urine Protein Negative (Negative) Urine Glucose (UA) Negative (Negative) Diagnostic Findings KUB X-Ray 09/23/21 19:20 KUB Clinical history: Left flank pain. FINDINGS: 2 AP supine abdominal radiographs are correlated with abdominal CT dated 09/22/2021. There is a nonobstructed abdominal bowel gas pattern. No calcifications are seen projecting over either kidney. A 9 mm calcification in the left hemipelvis likely represents the large stone within a bladder diverticulum seen on yesterday's CT scan. There may be an additional 6 mm calcification projecting over the distal left ureter below the pelvic inlet. The bony structures appear intact. IMPRESSION: Left pelvic calcifications as above, likely representing stones within the distal ureter and a left-sided bladder diverticulum. Electronically signed by: Mitul Remy M.D. 09/24/2021 7:23 AM Renal Ultrasound 09/23/21 19:20 ULTRASOUND KIDNEYS AND BLADDER CLINICAL HISTORY: Flank pain. Known left ureteral stone. COMPARISON STUDY: Abdominal CT dated 09/22/2021. TECHNIQUE: Real-time, grayscale, and color flow sonography of the kidneys and bladder is performed. Images are reviewed in the transverse and longitudinal planes. FINDINGS: Kidneys: The kidneys are normal in size and echotexture. The right kidney measures 12.5 cm in length and the left kidney measures 14.0 cm in length. There is mild left-sided hydronephrosis. The left ureter is not well-visualized. No shadowing renal calculi are identified in either kidney. There is no sonographic evidence of contour deforming renal mass lesion. No perinephric fluid is identified. Bladder: The bladder wall appears thickened and trabeculated suggesting chronic outlet obstruction. Ureteral jets were not seen. A shadowing stone is seen in the region of the vesicoureteral junction. Upper abdomen: Survey images of the liver show evidence of steatosis. IMPRESSION: 1. Kidneys normal in size and there is mild left hydronephrosis. 2. A large calculus is seen in the region of the vesicoureteral junction. This could represent distal migration of the known left ureteral stone or a stone seen within a left-sided bladder diverticulum on yesterday's CT scan. 3. Ureteral jets were not seen. 4. Hepatic steatosis. ACT 112: Negative or not required by law. Electronically signed by: Mitul Remy M.D. 09/24/2021 7:19 AM Medications Administered Current Inpatient Medications Acetaminophen (Acetaminophen 325 Mg Tab) 650 mg PO Q4H PRN PRN Reason: pain/fever Stop: 10/23/21 23:22 Atorvastatin Calcium (Atorvastatin 10 Mg Tab) 10 mg PO DAILY ZACH Stop: 10/24/21 08:59 Last Admin: 09/24/21 09:03 Dose: 10 mg Documented by: Atropine Sulfate (Atropine Sulfate 0.1 Mg/Ml 10ml Syr) 0.5 mg IV Q1M PRN PRN Reason: PACU Use-HR<40 &/or Bradycardi Stop: 09/24/21 22:22 Ephedrine Sulfate (Ephedrine Sulfate 50 Mg/Ml Amp) 5 mg IV Q5M PRN PRN Reason: PACU Use Only-SBP<90 mmHg Stop: 09/24/21 22:22 Fentanyl Citrate (Fentanyl Citrate 100 Mcg/2 Ml Vial) 50 mcg IV Q5M PRN PRN Reason: PACU Use Only-Pain Stop: 09/24/21 22:22 Hydralazine HCl (Hydralazine Hcl 20 Mg/Ml Vial) 5 mg IV Q6H PRN PRN Reason: Hypertension Stop: 10/23/21 23:22 Hydromorphone HCl (Hydromorphone Inj 1 Mg/Ml Syringe) 1 mg IV Q2H PRN PRN Reason: Pain Stop: 10/08/21 05:52 Last Admin: 09/24/21 11:23 Dose: 1 mg Documented by: Hydromorphone HCl (Hydromorphone Inj 2 Mg/Ml Syr/Vial) 0.5 mg IV Q5M PRN PRN Reason: PACU Use Only-Pain Stop: 09/24/21 22:22 Sodium Chloride (Nss 1000ml) 1,000 mls @ 125 mls/hr IV .Q8H ZACH Stop: 10/23/21 23:22 Last Admin: 09/24/21 06:45 Dose: 125 mls/hr Documented by: Ciprofloxacin (Cipro / D5w) 400 mg in 200 mls @ 100 mls/hr IV PREOP ZACH; Protocol Stop: 09/25/21 05:59 Last Admin: 09/24/21 14:58 Dose: 100 mls/hr Documented by: Ondansetron HCl (Ondansetron Inj 2 Mg/Ml 2 Ml Vial) 4 mg IV Q6H PRN PRN Reason: Nausea Stop: 10/23/21 23:22 Ondansetron HCl (Ondansetron Inj 2 Mg/Ml 2 Ml Vial) 4 mg IV ONCE PRN PRN Reason: PACU Use Only-Nausea/Vomiting Stop: 09/24/21 22:22 Pantoprazole Sodium (Pantoprazole 40 Mg Tab) 40 mg PO QAM ZACH Stop: 10/24/21 08:59 Last Admin: 09/24/21 09:03 Dose: 40 mg Documented by: Polyethylene Glycol (Polyethylene (Miralax) 17 Gm Pack) 17 gm PO DAILY PRN PRN Reason: Constipation Stop: 10/23/21 23:22 Tamsulosin HCl (Tamsulosin Hcl 0.4 Mg Cap) 0.4 mg PO DAILY ZACH Stop: 10/24/21 08:59 Last Admin: 09/24/21 09:03 Dose: 0.4 mg Documented by:
--- NOTE | 2021-09-24 17:51 | Fluoroscopy Report ---
INTRAOPERATIVE RADIOGRAPH CLINICAL HISTORY: Left ureteral stent placement. Fluoroscopy time: 4 seconds. FINDINGS: A single spot image of the left upper quadrant is correlated with abdominal CT dated . The provided image shows the proximal end of a left ureteral stent projecting over the renal pel vis. No calcifications are clearly seen along the proximal aspect of the stent. IMPRESSION: Intraoperative image from a left ureteral stent placement procedure as above. Electronically signed by: Mitul Remy M.D. 09/24/2021 5:50 PM
[2021-09-25] MEDS: SODIUM CHLORIDE 0.9% 1000ML 1,000 ML IV SCH ×2 (00:18→08:11)
[2021-09-25 03:41] VITALS: PULSE 77
[2021-09-25 07:37] LABS: BUN Creatinine Ratio 14.4 (10-20); Calcium 8.8 mg/dl (8.5-10.1); Creatinine Clr Calc Pharmacy 99.7 ml/min; Est GFR (Non-African American) 75.9 ml/min; Potassium 4.1 mmol/L (3.5-5.1)
[2021-09-25 07:53] VITALS: BP 140/85; TEMP 97.9; O2SAT 98
[2021-09-25] MEDS: PANTOprazole 40 MG TAB PO SCH (08:12)
[2021-09-25] MEDS: TAMSULOSIN HCL 0.4 MG CAP PO SCH (08:12)
[2021-09-25] MEDS: ATORVASTATIN 10 MG TAB PO SCH (08:12)
--- NOTE | 2021-09-25 08:19 | Urology Progress Note ---
Date of Service September 25, 2021 Assessment & Plan (1) Calculus, ureteral: (2) Bladder calculi: Plan: - Pt POD#1 s/p cystoscopy, cystolitholapaxy and stone extraction, and left ureteral stent placement with Dr. Stallings. - Bladder stones and stone within diverticulum were treated/extracted. - Doing well, progressing as expected. - Afebrile, lab work reviewed - creatinine improved to 1.11 today. - Tolerating left ureteral stent with minimal bother. - Okay to d/c from perspective when medically stable. - Recommend d/c with Tamsulosin once daily, prn Pyridium and prn pain medication for stent management. - Expected clinical course reviewed, all questions answered. - Will arrange outpatient follow-up with our service for definitive stone treatment of left proximal ureteral stone. Admission and Anticipated Discharge Date Admission Date: September 23, 2021 Subjective Patient seen and examined at bedside this AM. He is awake, alert, and resting in bed. No acute issues overnight. Voiding spontaneously, mild dysuria, hematuria starting to clear post procedure. Reports feeling bloated, but otherwise no significant flank or abdominal d iscomfort. Tolerating PO diet, no nausea or vomiting. No fever or chills. Review of Systems Constitutional: as per Subjective / HPI Gastrointestinal: as per Subjective / HPI Genitourinary: + as per Subjective / HPI Physical Exam Constitutional: well developed and well nourished; no acute distress and not ill appearing Respiratory: normal respiratory effort and able to speak in complete sentences; no respiratory distress and no labored breathing Gastrointestinal (Abdomen): Inspection/Auscultation: abdomen normal to inspection; abdomen not distended Musculoskeletal: Head/Neck/Chest: normocephalic Skin: no visible skin rashes Neurologic: moves all extremities and awake Psychiatric: Orientation: alert and oriented x 3 Results & Data ([facility]) Vital Signs (Past 12 Hours) Vital Signs Temp Pulse Resp BP Pulse Ox 09/25/21 07:52 36.6 C 16 140/85 98 09/25/21 03:38 36.7 C 77 18 143/90 H 93 09/24/21 22:52 36.8 C 86 18 149/85 H 93 PG Care Time/CCT Total # of Minutes Spent Total Time Spent with Patient: Total time spent is greater than 50% in coordination of care (as documented) at patient's floor/unit and/or counseling patient: Coding Level of Care Code 81146 Subseq Hosp Care Lvl 2 Diagnoses Calculus, ureteral N20.1 Bladder calculi N21.0
--- NOTE | 2021-09-25 14:44 | Discharge Summary ---
Date of Service September 25, 2021 Admission HPI Per Admitting Provider This 50-year-old male with past medical history significant for hypertension, external hemorrhoids, Shine's esophagus, GERD, allergic conjunctivitis, mixed rhinitis, obesity, history of colon polyps, presents with left renal colic. The patient is having pain since last . He was in the ER yesterday and imaging studies CAT scan showed mild left hydronephrosis and hydroureter secondary to 6 mm obstructing stone in the proximal left ureter. After Toradol, the patient did fine and he was sent home on oxycodone, Flomax. The patient was taking a lot of pain medication today at home. Pain was getting worse, so he came here, and ultrasound was done in the ER, which showed the stone moved into left UVJ junction, 6 mm stone. Getting admitted because of ongoing pain and also his creatinine worsened from 1.2 to 1.9 today. The patient denies any blood in the urine or frequent micturition, no blood in the stools. No fever, no chills, no nausea, no vomiting. Currently, pain is about 5-6/10 in severity. Denies any chest pain, no shortness of breath, no headache, no blurred visions, no earache, no runny nose, no sore throat, no cough. Otherwise, ambulates okay. Admission Exam Per Admitting Provider GENERAL: The patient is of moderate built, not in acute distress. VITAL SIGNS: Temperature 36.7, pulse 90, respiratory rate 20, blood pressure 153/95, oxygen 94% on room air. HEENT: Pupils equal, round and reactive to light. Oral mucosa moist. NECK: No JVD. No neck masses. CARDIOVASCULAR: S1 and S2 heard. Regular rate and rhythm. No murmur, no gallop. RESPIRATORY SYSTEM: Normal AP diameter. No accessory muscle use. No wheezing, no crackles. ABDOMEN: Soft, bowel sounds present. Mild left lower quadrant tenderness. No CVA tenderness. No guarding. No rigidity. CENTRAL NERVOUS SYSTEM: Cranial nerves II-XII grossly intact, nonfocal. EXTREMITIES: No edema, no erythema. Principal Diagnosis Left ureteral calculi, bladder calculi, JOHN Discharge Exam General: Lying comfortably in bed, not in distress, on room air HEENT: EOMI, THU, MMM Chest: Clear breath sounds bilaterally, no wheezes or crackles CVS: Regular rate and rhythm, normal heart sounds, no murmur Abdomen: Soft, non tender, not distended, normal bowel sounds. No CVA or suprapubic tenderness. Neuro: Awake, alert, oriented, conversing well, non focal Extremities: No cyanosis, clubbing or edema Discharge Data Allergies Allergy/AdvReac Type Severity Reaction Status Date / Time No Known Allergies Allergy Verified 09/23/21 19:11 Consultations 09/23/21 22:33 ED Decision to Admit Stat 09/24/21 08:00 Consult Urology Routine Procedures Performed Operation Date: 09/24/21 09:05 Actual Procedures p Cystoscopy, Left Ureteral Stent Insertion, Left lithopaxy(Left) - Nima Stallings MD Ordered Studies 09/23/21 19:20 US renal/blad retro comp Urgent 09/24/21 FL KUB Routine Hospital Course (1) Calculus, ureteral: (2) JOHN (acute kidney injury): 50 year old male presented to the ED with left flank pain due to left ureteral calculus. Left ureteral calculus/bladder calculi- CT reviewed. Renal US reviewed. S/p OR with cystolithalopaxy and stone extraction, left ureteral stent insertion today 09/24. No evidence of UTI. Doing well postoperatively on day 1. Tolerating diet well, voiding without issues. Discharging on flomax and pyridium per uro recommendations. He has pain meds at home with him. JOHN- Resolved. Cr down to 1.1 from 1.98. HTN- continue home lisinopril GERD and barett's esophagus- continue PPI Total Time Total Time Spent Total Time Spent (In Minutes): 25 Discharge Plan Discharge Items Patient Disposition: Home - Self-Care Reason For Visit: KIDNEY STONE Discharge Diagnosis: left ureteral calculus, bladder calculi, JOHN Activity: Resume your previous activity Non-emergency contact: Primary Care Provider and Urologist Call non-emergency contact if: you have any medication questions, your symptoms worsen, your pain is not controlled, your pain is concerning for you and you have a fever Follow-up/Referrals: Nima Stallings MD [Physician] - 10/09/21 4:00 pm Marcos Painter MD [Primary Care Provider] - (Date & Time 09/28/2021 11:00 AM Provider Juju Mainali, MD Department General Internal Medicine [facility] ) Diet: Regular Addtl Attending Provider Instructions: [facility]: Location: [address] [place] [address] Please take all medications as prescribed and keep all follow-ups as scheduled. Please call our office at [phone] with any questions, concerns or need to reschedule appointments for any reason. We are happy to assist you. While you have a ureteral stent in place: Some discomfort is normal. Certain movements may trigger pain or a feeling that you need to urinate. You may also feel mild soreness or pressure before or during urination. These symptoms should go away a few days after the stent is removed. Your urine may be slightly pink or red. This is due to bleeding caused by minor irritation from the stent. This may happen on and off while you have the stent, it is not harmful and is to be expected. Medication to help minimize discomfort or bladder spasms, or to prevent infection may be prescribed. Take this as directed. Drink plenty of fluids to help flush out your urinary tract. If you go home with a catheter, wash with soapy water and a fresh washcloth twice daily. We recommend mild bar soap such as Dial or Dove. How long will you need a stent? The stent is often taken out after the blockage in the ureter is treated or the ureter has healed. This may take 1-2 weeks, or longer. Likely prior to your followup appointment you will be asked to get an X-ray, please complete this the night before or morning of your appointment. When to call [facility] at [phone]: Your urine contains heavy blood clots You are constantly leaking urine Fever of 101F or higher, chills, nausea, or vomiting Your pain is not relieved with medication The end of the stent comes out of your urethra Pending Studies at Discharge: No Stand-Alone Forms: My [employer], Smoking Cessation Medications and DC Order Prescriptions: New phenazopyridine [Pyridium] 200 mg tablet 200 mg PO TID PRN (Reason: pain) Qty: 6 RF: 0 Continued lisinopril 10 mg Tablet 10 mg PO QAM RF: 0 omeprazole magnesium [Prilosec OTC] 20 mg Tablet,Delayed Release (Dr/Ec) 20 mg PO QAM RF: 0 atorvastatin 10 mg Tablet 10 mg PO DAILY RF: 0 ondansetron 4 mg tablet,disintegrating 4 mg PO Q6H PRN (Reason: nausea and vomiting) Qty: 12 RF: 0 oxycodone 5 mg tablet 5 mg PO Q6H Qty: 12 RF: 0 tamsulosin [Flomax] 0.4 mg capsule 0.4 mg PO DAILY 30 Days Qty: 7 RF: 0 Discharge Orders: Discharge Order (Routine); Ordered 09/25/21 Ordered By: Maykel Valentino/Other Patient Handouts: Kidney Stone (Urine), Having a Ureteral Stent Admission Data Admit Date/Time: 09/23/21 22:24 Attending Provider: Maykel Fuller Admit Provider: Kike Romero Primary Care Provider: Marcos Painter Other Providers: Kike Romero ; Yefri Oliveira ; Allan Lin ; Nima Stallings ; Day Rothman ; Russell Meléndez ; Thalia Lombardi Melissa A. ; Ceci Monge ; Michael Aden ; Jens Lechuga ; Natalia Sloan ; Mayela Monge ; Ahsan Jackson Other Interventions: Discharge Summary Assessment (RN) Last Done: 09/25/21 11:09
[2021-09-28 03:36] LABS: Component 2 DNR; Source BLADDER STONE
== END 2021-09-25 12:05 | disposition home or self-care (01) | DRG 661 ==
LOC: ED 19:03 → 3E 22:24